=== PATIENT | female | born 1985 | race Caucasian/White ===

== ENCOUNTER 2022-05-28 10:12 | Emergency (ER) | payer MEDICAID ==
[~2022-05-28] VITALS: Ht 165.1 cm; Wt 58.0 kg
[2022-05-28] MEDS ORDERED: LIDOCAINE 1% 10 ML VIAL ID ONE (13:00)
[2022-05-28] MEDS ORDERED: HYDROCODONE/ACETAMINOPHEN 5-325 MG TABLET PO ONE (13:00)
[2022-05-28] MEDS ORDERED: SODIUM CHLORIDE 0.9% 250 ML IRRIG SOLUTION BOTTLE IRRIG ONE (13:00)
[2022-05-28] MEDS ORDERED: CLIN300C58 PO (14:43)
[2022-05-28] MEDS ORDERED: HYDR-4723 PO (14:43)
[2022-05-28] MEDS ORDERED: CLINDAMYCIN HCL 150 MG CAPSULE PO ONE (14:45)
[2022-05-28 15:05] VITALS: BP 136/77
== END 2022-05-28 15:34 | disposition home or self-care (01) ==
LOC: EMS 10:33
DX: S62.522A Displaced fracture of distal phalanx of left thumb, initial encounter for closed fracture (principal); X58.XXXA Exposure to other specified factors, initial encounter; Y93.89 Activity, other specified; Y92.89 Other specified places as the place of occurrence of the external cause; Y99.8 Other external cause status
CPT/HCPCS: 99283; 73130; 29130; J3490